=== PATIENT | male | born 1995 | race Caucasian/White ===

== ENCOUNTER 2016-10-05 01:34 | Emergency (ER) | payer BC ==
[2016-10-06] MEDS ORDERED: ALDACTONE25 MG PO (12:24)
[2016-10-06] MEDS ORDERED: PROVENTIL HFA6.7 GM IH (12:25)
[2016-10-06] MEDS ORDERED: COREG12.5 MG PO (12:25)
[2016-10-06] MEDS ORDERED: LASIX40 MG PO (12:25)
[2016-10-06] MEDS ORDERED: LISINOPRIL5 MG PO (12:25)
[2016-10-06] MEDS ORDERED: LEVAQUIN750 MG PO (12:26)
[2016-10-06] MEDS ORDERED: ACETAMINOPHEN325 MG PO (12:26)
== END 2016-10-05 04:17 | disposition critical access hospital (66) ==
LOC: ER 01:34
DX: J18.9 Pneumonia, unspecified organism (principal); R04.2 Hemoptysis; I10 Essential (primary) hypertension
CPT/HCPCS: 96365

== ENCOUNTER 2016-10-05 01:34 | Observation (INO) | payer BC ==
--- NOTE | 2016-10-06 11:24 | NUR ---
1100 - PATIENT DISCHARGED HOME/MD ORDER. TELEMETRY REMOVED. IV KEPT/MD ORDER. APPTS. AND PRESCRIPTIONS GIVEN. AMBULATORY. TO E/PRIVATE VEHICLE WITH MOTHER.
[2016-10-06] MEDS ORDERED: ALDACTONE25 MG PO (12:24)
[2016-10-06] MEDS ORDERED: LASIX40 MG PO (12:25)
[2016-10-06] MEDS ORDERED: COREG12.5 MG PO (12:25)
[2016-10-06] MEDS ORDERED: PROVENTIL HFA6.7 GM IH (12:25)
[2016-10-06] MEDS ORDERED: LISINOPRIL5 MG PO (12:25)
[2016-10-06] MEDS ORDERED: LEVAQUIN750 MG PO (12:26)
[2016-10-06] MEDS ORDERED: ACETAMINOPHEN325 MG PO (12:26)
== END 2016-10-06 11:00 | disposition home or self-care (01) ==
LOC: ER 01:34 → MED 04:17
PROVIDERS: ADMIT Internal Medicine
DX: I42.0 Dilated cardiomyopathy (principal); I10 Essential (primary) hypertension; E66.01 Morbid (severe) obesity due to excess calories; J40 Bronchitis, not specified as acute or chronic; R04.2 Hemoptysis; Z79.2 Long term (current) use of antibiotics; Z79.899 Other long term (current) drug therapy; Z91.14 Patient's other noncompliance with medication regimen; Z82.49 Family history of ischemic heart disease and other diseases of the circulatory system
CPT/HCPCS: 36415; 93306; 96365; 96372; 96375; G0378; J1650; J1940